=== PATIENT | male | born 1945 | race Caucasian/White ===

== ENCOUNTER → 2020-10-07 | Outpatient (CLI) | payer SELFPAY | LOC: M LABSMTC 14:52 | PROVIDERS: ATTEND Pediatrics | DX: Z11.59 Encounter for screening for other viral diseases (principal) ==

== ENCOUNTER → 2022-08-19 | Outpatient (REF) | payer BC ==
[2022-08-19 14:55] LABS: IMMUNOGLOBULIN M 16.6 MG/DL (40-230)
== END ==
LOC: M LAB REF 12:19
PROVIDERS: ATTEND Internal Medicine
DX: R41.3 Other amnesia (principal); R79.89 Other specified abnormal findings of blood chemistry

== ENCOUNTER → 2022-08-31 | Outpatient (CLI) | payer BC ==
[~2022-08-31] MED LIST: ISOVUE-370 76% 100ML VIAL As Ordered ONE
== END ==
LOC: M RAD 08:00
PROVIDERS: ATTEND Internal Medicine
DX: R41.3 Other amnesia (principal)
CPT/HCPCS: 70470; Q9967

== ENCOUNTER → 2022-09-08 | Outpatient (CLI) | payer BC ==
[2022-09-08 17:59] LABS: FREE T4 0.79 NG/DL (0.76-1.46); RHEUMATOID FACTOR QUANT < 10.0 IU/ML (<15.0)
[2022-09-08 18:34] LABS: FOLATE 18.3 NG/ML (>5.4); VITAMIN B12 LEVEL 513 PG/ML (247-911)
== END ==
LOC: M WUC 14:53
PROVIDERS: ATTEND Psychiatry & Neurology Neurology
DX: E07.9 Disorder of thyroid, unspecified (principal); E53.8 Deficiency of other specified B group vitamins; R51.9 Headache, unspecified; I63.9 Cerebral infarction, unspecified

== ENCOUNTER → 2022-11-23 | Outpatient (REF) | payer BC ==
[2022-11-23 17:24] LABS: SOURCE, BODY FLUID RT ELBOW
[2022-11-23 17:25] LABS: SYNOVIAL FLUID COLOR ORANGE (COLORLESS)
[2022-11-23 17:27] LABS: CRYSTALS, BODY FLUID NONE SEEN (NONE SEEN); SOURCE, BODY FLUID CRYSTALS RT ELBOW
== END ==
LOC: M LAB REF 16:29
PROVIDERS: ATTEND Internal Medicine
DX: M70.31 Other bursitis of elbow, right elbow (principal)

== ENCOUNTER → 2022-12-06 | Outpatient (CLI) | payer BC | LOC: M WUC 14:06 | PROVIDERS: ATTEND Internal Medicine | DX: R22.31 Localized swelling, mass and lump, right upper limb (principal); M79.89 Other specified soft tissue disorders ==

== ENCOUNTER → 2022-12-13 | Outpatient (REF) | payer BC ==
[2022-12-13 18:54] LABS: SOURCE, BODY FLUID RT ELBOW; SYNOVIAL FLUID COLOR YELLOW (COLORLESS)
== END ==
LOC: M LAB REF 16:06
PROVIDERS: ATTEND Internal Medicine
DX: M70.31 Other bursitis of elbow, right elbow (principal)

== ENCOUNTER → 2024-07-20 | Outpatient (REF) | payer BC ==
[2024-07-20 17:46] LABS: BLOOD UREA NITROGEN 12 MG/DL (9-23); CREATININE FOR GFR 0.98 MG/DL (0.70-1.30); GLOMERULAR FILTRATION RATE > 60.0 (>42)
== END ==
LOC: M LABWUC 16:27
PROVIDERS: ATTEND Otolaryngology
DX: D37.05 Neoplasm of uncertain behavior of pharynx (principal); F45.8 Other somatoform disorders

== ENCOUNTER → 2024-07-26 | Outpatient (CLI) | payer BC | LOC: M RAD 13:11 | PROVIDERS: ATTEND Otolaryngology | DX: D37.05 Neoplasm of uncertain behavior of pharynx (principal); F45.8 Other somatoform disorders | CPT/HCPCS: 70491; Q9967 ==

== ENCOUNTER → 2024-08-14 | Outpatient (CLI) | payer BC ==
[~2024-08-14] MED LIST changes: +E-Z-GAS II EFFERVESCENT PACKET (SODIUM BICARB./CITRIC ACID/SIMETHICONE) As Ordered ONE; +E-Z-HD 98% w/w 340GM SUSP BTL As Ordered ONE; +E-Z-PAQUE 96% w/w SUSP 176GM BTL As Ordered ONE; -ISOVUE-370 76% 100ML VIAL As Ordered ONE
== END ==
LOC: M RAD 09:36
PROVIDERS: ATTEND Otolaryngology
DX: D37.05 Neoplasm of uncertain behavior of pharynx (principal); F45.8 Other somatoform disorders; K22.5 Diverticulum of esophagus, acquired; K44.9 Diaphragmatic hernia without obstruction or gangrene; K22.89 Other specified disease of esophagus